=== PATIENT | female | born 2000 | race Caucasian/White ===

== ENCOUNTER 2018-09-27 16:56 | Inpatient (IN) | payer OTHER, SELFPAY ==
[~2018-09-27] VITALS: Ht 165.1 cm; Wt 70.4 kg
[2018-09-27] MEDS ORDERED: PRENTAB9 PO (17:21)
[2018-09-27 17:25] VITALS: BP 117/67
[2018-09-27] MEDS ORDERED: LR 1,000 ML IV ONE (17:30)
[2018-09-27] MEDS ORDERED: LACTATED RINGER'S 1000 ML IV STA (18:33)
[2018-09-27] MEDS ORDERED: LR 1,000 ML IV SCH ×2 (18:33→21:30)
[2018-09-27] MEDS ORDERED: ACETAMINOPHEN 500 MG TAB PO PRN (18:45)
[2018-09-27] MEDS ORDERED: BICITRA 30ML SOLN UDC PO ONE (18:45)
[2018-09-27] MEDS ORDERED: AZITHROMYCIN INJ 500 MG, VIAL MATE ADAPTER 1 EACH in D5W 250 ML IV ONE (18:45)
[2018-09-27 18:58] LABS: HEMATOCRIT 32.7 % (36.0-47.0); MEAN CORPUSCULAR HEMOGLOBIN 29.4 pg (27.0-33.0); MEAN CORPUSCULAR HGB CONC 33.6 g/dl (32.0-36.5); MEAN CORPUSCULAR VOLUME 87.4 fl (80.0-96.0); PLATELET COUNT, AUTOMATED 179 10^3/uL (150-450); RED BLOOD COUNT 3.74 10^6/uL (4.00-5.40); WHITE BLOOD COUNT 17.5 10^3/uL (4.0-10.0)
[2018-09-27] MEDS: AMPICILLIN SOD/SULBACTAM SOD 3 GM in D5W MINI-BAG PLUS 100 ML IV SCH ×2 (19:03→23:57)
[2018-09-27 19:14] VITALS: BP 133/72
[2018-09-27] MEDS ORDERED: OXYTOCIN INJ 10 UNITS/ML VIAL (J2590) As Ordered ONE (19:19)
[2018-09-27] MEDS ORDERED: dexameTHASONE 4 MG/ML 1ML VIAL (J1100) As Ordered ONE (19:22)
[2018-09-27] MEDS ORDERED: ONDANSETRON 4MG/2ML VIAL (J2405) As Ordered ONE (19:22)
[2018-09-27 19:24] LABS: BASO % 0.2 % (0.0-1.0); EOS % 0.1 % (0.0-3.0); LYMPH # 0.6 10^3/uL (1.5-6.5); LYMPH % 3.7 % (24.0-44.0); MONO # 1.2 10^3/uL (0.0-0.8); NEUTROPHILS # 15.3 10^3/uL (1.8-7.7); NEUTROPHILS % 88.1 % (36.0-66.0)
[2018-09-27] MEDS ORDERED: BUPIVACAINE/DEXTROSE 0.75% 2 ML AMP As Ordered ONE (19:24)
[2018-09-27] MEDS ORDERED: MORPHINE PRES-FREE INJ 10 MG/10 ML VIAL (J2274) As Ordered ONE (19:25)
[2018-09-27 19:35] LABS: PLATELET ESTIMATE NORMAL (NORMAL)
[2018-09-27] MEDS ORDERED: diphenhydrAMINE INJ 50MG/ML VIAL (J1200) IV PRN (19:55)
[2018-09-27] MEDS ORDERED: NALOXONE INJ 0.4 MG/1 ML VIAL (J2310) IV PRN ×2 (19:55)
[2018-09-27] MEDS ORDERED: METOCLOPRAMIDE INJ 10MG/2ML VIAL (J2765) IV PRN (19:55)
[2018-09-27] MEDS ORDERED: NALBUPHINE HCL 10 MG/ML AMP (J2300) IV PRN ×2 (19:55→21:30)
[2018-09-27] MEDS ORDERED: ONDANSETRON 4MG/2ML VIAL (J2405) IV PRN ×3 (19:55→21:45)
[2018-09-27] MEDS ORDERED: miSOPROStol 200 MCG TAB (S0191) As Ordered ONE (20:22)
[2018-09-27 20:32] LABS: CORD GAS HCO3 V 22.3 MEQ/L; CORD GAS O2 SAT V 58.3 %; CORD GAS PCO2 V 41.2 mmHg; CORD GAS PH V 7.352 UNITS; CORD GAS PO2 V 23.1 mmHg; CORD GAS SBC V 21.1 MEQ/L; CORD GAS TCO2 V 23.6 MEQ/L
[2018-09-27 20:33] LABS: CORD GAS PH A 7.283 UNITS
[2018-09-27] MEDS ORDERED: fentaNYL 100 MCG/2 ML INJECTION (J3010) As Ordered ONE (20:33)
[2018-09-27 20:34] LABS: CORD GAS HCO3 A 26.3 MEQ/L; CORD GAS PCO2 A 56.9 mmHg; CORD GAS PO2 A 11.5 mmHg; CORD GAS TCO2 A 28.1 MEQ/L
[2018-09-27] MEDS ORDERED: OXYTOCIN 30 UNITS IN 0.9% NaCl 500ML IV BAG (J2590) As Ordered ONE (20:34)
[2018-09-27 20:35] LABS: CORD GAS ABE A -1.4; CORD GAS O2 SAT A 20.1 %; CORD GAS SBC A 21.6 MEQ/L
[2018-09-27] MEDS ORDERED: ACYCLOVIR 350 MG in D5W 100 ML IV SCH (21:00)
[2018-09-27] MEDS ORDERED: MORPHINE 10 MG/ML 1ML VIAL (J2270) IV PRN (21:30)
[2018-09-27] MEDS ORDERED: fentaNYL 100 MCG/2 ML INJECTION (J3010) IV PRN (21:30)
[2018-09-27] MEDS: LR 1,000 ML IV SCH (21:45)
[2018-09-27] MEDS ORDERED: RHOGAM 300 MCG (1500 IU) INJ (J2790) IM SCH (21:45)
[2018-09-27] MEDS ORDERED: MEASLES,MUMPS,RUBELLA VACCINE INJ (MMR-II) (90707) SC SCH (21:45)
[2018-09-27] MEDS ORDERED: miSOPROStol 200 MCG TAB (S0191) PR ONE (21:45)
[2018-09-27] MEDS ORDERED: KETOROLAC 30 MG/ML VIAL (J1885) As Ordered ONE (21:53)
[2018-09-27] MEDS ORDERED: PERCOCET 5MG/325MG TAB As Ordered ONE (22:13)
[2018-09-27] MEDS: PERCOCET 5MG/325MG TAB PO PRN (22:21)
[2018-09-27] MEDS: KETOROLAC 30 MG/ML VIAL (J1885) IV SCH (22:22)
--- NOTE | 2018-09-27 22:59 | HPEPDOC ---
Obstetrical History & Physical General Date of Admission Sep 27, 2018 at 18:25 History of Present Illness Ora is a 18yo with SIUP at 35w6d by LMP c/w 17wk u/s who presents tonight with a few complaints. She recently arrived a few days ago as a transfer-in to this area, recently stationed at [place] and in-p rocessing begins tomorrow. They are staying at a hotel. She notes that about 3 days ago she started having fevers/chills. She then went on to develop abdominal pain. This morning she noticed gush of fluid from her vagina and she feels she has still been leaking though did not wear a pad here. Has felt movement. She has had some nausea but no vomiting/diarrhea. She also notes that she has had an active HSV lesion on her genitalia. She took 2 doses of valtrex, but stopped when she felt nauseous because she thought maybe the medication was causing it. She is somewhat of a poor historian, because she is obviously distressed from her abdominal pain and contractions- so she is not exactly sure of the chronology of things. 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 Late to care at 15wk. Transfer in from [place], has not yet been seen in our office but records in hand. Height (inches): 65 Pre- weight (lbs.): 123 Admission Weight (lbs.): 156 Change in Weight (lbs.): 33 Past Medical History Past Obstetrical History : Past Obstetrical History: [employer] History: History of STD (chlamydia) Past Medical History Medical History Hx of genital HSV Surgical History: Tonsilectomy Family History Significant Family History: No pertinent family hx Social History Marital Status: Family situation: Spouse/partner home Psychosocial History: No pertinent psych hx * Smoker: non-smoker Alcohol: Denies Drugs: denies Imunizations Tdap status: declined Influenza Status: declined Allergies Coded Allergies: Shellfish Allergy (Verified Allergy, Intermediate, STATES BROKE OUT IN HIVES, 09/27/18) Medications Scheduled Multivitamins/ ( 27-0.8 mg) 1 Tab Tab, 1 TAB PO DAILY Physical Examination Physical Examination GENERAL: Alert and oriented times three. She is warm to the touch. She is distressed. ABDOMEN: Gravid with generalized fundal tenderness, no rebound/guarding FETUS: Is vertex (VTX) by sterile vaginal examination (SVE) EXTREMITIES: No edema. Glistening of the perineum, nitrazine touched to it and immediately turned blue. Grossly ruptured on exam, clear fluid. Vital Signs/I&O Vital Signs Date Time Temp Pulse Resp B/P (MAP) Pulse Ox O2 Delivery O2 Flow Rate FiO2 09/27/18 17:25 101.7 113 22 117/67 (84) Laboratory Data 24H LABS Laboratory Tests 2 09/27/18 18:48: Nucleated Red Blood Cells % (auto) 0.0 CBC/BMP Laboratory Tests 09/27/18 18:48 Red Blood Count 3.74 L, Mean Corpuscular Volume 87.4, Mean Corpuscular Hemoglobin 29.4, Mean Corpuscular Hemoglobin Concent 33.6, Red Cell Distribution Width 13.0 Pertinent Laboratoy Data Blood Type: O+ RBC Antibody Screen: Negative HIV: Negative Hepatitis B: Negative Hepatitis C: Unknown Rapid Plasma Reagin: Nonreactive Rubella: Immune Varicella: Immune Chlamydia/Gonorrhea: Negative Group B Streptococcus: Unknown Quad Screen Test: Negative Cystic Fibrosis: Negative Glucose Tolerance Test: 82 Anatomy Ultrasound Ultrasound Date: Jun 08, 2018 Placenta Location: Posterior Normal Anatomy: Yes Placenta Previa: No Steroid Therapy Steroid Therapy: No Vaginal Examination Dilation: 3 cm Effacement: 90% Station: -2 Cervical Consistency: Soft Assessment Heart Rate (FHR): 170 Variability: Moderate Accelerations: Positive Decelerations: None Tocometer Contractions: Yes Frequency: regular, every 2-5 min. Duration: greater than 60 seconds Strength: palpated as strong Assessment/Plan Assessment Ora is a 18yo with SIUP at 35w6d by LMP c/w 17wk u/s with suspected chorioamnionitis based on fever of 101.7F, maternal tachycardia pulse 113, tachycardia 170's, fundal tenderness, & ctx all in the setting of gross rupture of membranes. Uncertain time of PPROM, possibly this morning, though patient endorses febrile x3 days. Also concerning, patient endorses recent HSV genital lesion she treated with 2 doses of valtrex but then discontinued secondary to nausea. Cat II FHRT due to tachy, but mod hira/no decels. SCE /-2. Patient is in distress, very uncomfortable. GBS unknown. Cephalic by SCE. Patient and just arrived in the area and staying in a hotel. Hx significant for: genital HSV, not on prophylaxis. Late to care at 15wk. Transfer in from [place], has not yet been seen in our office but records in hand. Plan Admit to L&D Nursing team, anesthesia, NICU physician alerted to need for urgent section Counseled and consented for PLTCS and blood transfusion, discussed r/b/a, tamika t and I signed consent forms NPO Bicitra per protocol Unasyn 3g q6hr, 1st dose immediately Acyclovir 350mg IV now Anceph 2g IV x1 pre-op Azithromycin 500mg IV x1 pre-op tylenol 1000mg PO x1 now considered betamethasone for premature , but given the minimal time it will be given before delivery and the fact that patient has infection and will need good wound healing, will not be giving steroids at this time Labs and intravenous (IV) per unit protocol. Lactated Ringers (LR): Bolus 1000 mL, then at 125 mL/hr. Will proceed to OR when team is ready MD Betty Lemus Katrina D MD Sep 27, 2018 19:58
[2018-09-27 23:15] VITALS: BP 132/74
[2018-09-27 23:50] VITALS: BP 127/72
[2018-09-28] VITALS (7 sets, daily range): BP systolic 100–122; BP diastolic 54–76
[2018-09-28] MEDS: AMPICILLIN SOD/SULBACTAM SOD 3 GM in D5W MINI-BAG PLUS 100 ML IV SCH ×4 (02:11→20:23)
[2018-09-28] MEDS: PERCOCET 5MG/325MG TAB PO PRN ×3 (02:11→18:51)
[2018-09-28] MEDS: KETOROLAC 30 MG/ML VIAL (J1885) IV SCH ×3 (04:00→15:52)
[2018-09-28] MEDS: LR 1,000 ML IV SCH (05:45)
[2018-09-28] MEDS ORDERED: METHYLERGONOVINE MALEATE 0.2 MG/ML VIAL (J2210) IM ONE (06:30)
--- NOTE | 2018-09-28 06:53 | IPNPDOC ---
Progress Note Date of Service: Sep 28, 2018 Day#: 1 Progress Note PPD/POD 1 SUBJECT: Ora is a 18yo [id number] s/p uncomplicated PLTCS on 09/27/18 indicated for active HSV lesion in the setting of PPROM/active labor and chorioamnionitis diagnosed at time of presentation. She presented with fever of 101F, and maternal tachycardia, fundal tenderness, gross ROM with uncertain timing and ctx. itself was uncomplicated. She received a Unasyn, Azithromycin and Azithromycin pre-op as well as a dose of IV acyclovir. is in the NICU for 5 days for IV abx/antivirals. occurred late in the evening yesterday. Since then, patient has been afebrile and feels p henomenally better. She is receiving Unasyn post-operatively and PO valtrex. She reports her pain is well controlled. She has not yet ambulated, has partida catheter in place draining copious yellow clear urine. She is tolerating regular diet. She hopes to breastfeed. Reports lochia is like a normal period. SCDs in place. No f/c/n/v/CP/SOB. OBJECTIVE: VITAL SIGNS: Within normal limits, afebrile. Alert and oriented times three. Abdomen: Fundus firm at U-2. Soft, appropriately tender to palpation with no rebound/guarding. Bandage over pfannensteil is dry and intact. Extremities: no pain with palpation of calves, SCDs on Labs: pre-op H/H: 11/32.7, WBC 17.5 ASSESSMENT: Ora is a 18yo [id number] s/p uncomplicated PLTCS on 09/27/18 indicated for active HSV lesion in the setting of PPROM/active labor and chorioamnionitis diagnosed at time of presentation. Vitals within normal limits, afebrile, benign exam, hemodynamically stable with no evidence of worsening infection. Good urine output. in NICU. PLAN: 1. Routine post-op/ care 2. Toradol and percocet then motrin and percocet for pain 3. Encourage breast feeding and ambulation to NICU. SCDs until fully ambulatory 4. Regular diet, encourage PO hydration 5. Partida catheter to be removed 24hr after surgery 6. Continue Unasyn 3g q6hr for 24hr post-op 7. Continue valtrex 500mg PO BID 8. Ok to shower and remove outer bandage tomorrow morning, 09/29 9. CBC tomorrow am, 09/29 Dr. Nandini Hernández MD VS, I&O, 24H, Fishbone Vital Signs/I&O Vital Signs Date Time Temp Pulse Resp B/P (MAP) Pulse Ox O2 Delivery O2 Flow Rate FiO2 09/28/18 05:50 97.1 67 20 119/62 (81) 98 09/28/18 02:00 Room Air I&O- Last 24 Hours up to 6 AM 09/28/18 06:00 Output Total 600 ml Balance -600 ml Laboratory Data 24H LABS Laboratory Tests 2 09/27/18 18:48: Immature Granulocyte % (Auto) 0.9, Neutrophils (%) (Auto) 88.1H, Lymphocytes (%) (Auto) 3.7L, Monocytes (%) (Auto) 7.0H, Eosinophils (%) (Auto) 0.1, Basophils (%) (Auto) 0.2, Immature Granulocyte # (Auto) 0.2H, Neutrophils # (Auto) 15.3H, Lymphocytes # (Auto) 0.6L, Monocytes # (Auto) 1.2H, Eosinophils # (Auto) 0.0, Basophils # (Auto) 0.0, Nucleated Red Blood Cells % (auto) 0.0, Platelet Estimate NORMAL 09/27/18 19:25: Serology Scanned Report Hepatitis B Testing 09/27/18 20:21: Cord Venous Blood pH 7.352, Cord Venous Blood PCO2 41.2, Cord Venous Blood PO2 23.1, Cord Venous Blood HCO3 22.3, Cord Venous Blood Total CO2 23.6, Cord Venous Base Excess (Actual) -3.0, Cord Venous Base Excess (Standard) 21.1, Cord Venous Blood Oxygen Saturation 58.3 CBC/BMP Laboratory Tests 09/27/18 18:48 Red Blood Count 3.74 L, Mean Corpuscular Volume 87.4, Mean Corpuscular Hemoglobin 29.4, Mean Corpuscular Hemoglobin Concent 33.6, Red Cell Distribution Width 13.0 Nandini Hernández MD Sep 28, 2018 06:53
[2018-09-28 07:06] LABS: HEMATOCRIT 32.5 % (36.0-47.0); HEMOGLOBIN 10.9 g/dl (12.0-15.5); MEAN CORPUSCULAR HEMOGLOBIN 29.5 pg (27.0-33.0); MEAN CORPUSCULAR HGB CONC 33.5 g/dl (32.0-36.5); MEAN CORPUSCULAR VOLUME 88.1 fl (80.0-96.0); PLATELET COUNT, AUTOMATED 176 10^3/uL (150-450); RED BLOOD COUNT 3.69 10^6/uL (4.00-5.40); WHITE BLOOD COUNT 18.5 10^3/uL (4.0-10.0)
[2018-09-28] MEDS: valACYclovir HCL 500 MG TAB PO SCH ×2 (08:39→21:11)
[2018-09-28] MEDS: PRENATAL VITAMINS CHEWABLE TABLET PO SCH (08:39)
[2018-09-28] MEDS: DOCUSATE SODIUM 100 MG CAP PO SCH ×2 (08:39→21:11)
--- NOTE | 2018-09-28 13:38 | RO ---
DATE OF PROCEDURE: 09/27/2018 CLINICAL SERVICE: Obstetrics. PREOPERATIVE DIAGNOSES: Premature rupture of membranes in the setting of chorioamnionitis, active vaginal herpes lesion. POSTOPERATIVE DIAGNOSES: Premature rupture of membranes in the setting of chorioamnionitis, active vaginal herpes lesion. OPERATION PERFORMED: Primary low transverse section. SURGEON: Nandini Hernández MD PRESIDENT PRACTICING UROLOGIST: Marisol Govea CNM who was necessary for urgent assistance involving exposure/retraction, assisted with delivery of the baby and subsequent closure of tissue layers. ANESTHESIA: INDICATIONS FOR OPERATION: Ora is a 18-year-old 1 now P 0-1-0-1 who arrived in labor and delivery, 35 weeks 6 days, reporting 3 days worth of fevers and an having significant abdominal pain as well as contractions. She is new to the area having recently moved here with her and currently staying at a hotel before they receive housing. She was a difficult historian because of her pain, but essentially there were three days of fevers. On explicit questioning regarding loss of fluid she stated yes she believes she had loss of fluid in the morning, but did not have continued leaking and she also endorsed having an active herpes lesion she had taken two doses of Valtrex for in the previous days, but stopped taking it due to nausea, however, her symptoms of nausea, abdominal pain, fevers contractions all became worse and culminated in her coming to labor and delivery. She is also having some vaginal bleeding. She was noted to be febrile to 101 degrees Fahrenheit. There was tachycardia as well as significant maternal tachycardia, abdominal pain and contractions noted. All of this, as well as having gross rupture of membranes with glistening of the perineum, Nitrazine which was touched to it and immediately turned blue, and on cervical exam she was 3 cm, 90% effaced and there was also gross leaking of fluid that was clear at that point, so a diagnosis of chorioamnionitis was made in the setting of premature rupture of membranes and labor and an unknown time line for an active herpes lesion. Because of the active herpes lesion, she was immediately counseled for primary low transverse section. The intensive-care unit (NICU) physician was alerted to the situation as well as the nursing team and anesthesia. She received a dose of 3 grams Unasyn IV immediately and was also then ordered for Ancef and azithromycin prophylactically for the surgery as well as a dose of acyclovir given her history of herpes. MATERIALS FORWARDED TO THE LAB FOR EXAMINATION: Placenta and cord gases. At the time of this dictation pH venous has resulted 7.352 and base excess -3. DESCRIPTION OF FINDINGS: Female infant in cephalic presentation. scores were 9 and 9, weight 3150 grams or 6 pounds 15 ounces, normal appearing uterus, fallopian tubes and ovaries. INFECTION CLASSIFICATION: II. ESTIMATED BLOOD LOSS: 600 mL. IV FLUIDS: 1200 mL of Lactated Ringer's. URINE OUTPUT: 100 mL of clear yellow urine. DESCRIPTION OF OPERATION: After obtaining informed consent, the patient was taken to the operating room. She had spinal anesthesia placed and Guillory catheter, bilateral sequential compression devices were placed. She was prepped and draped in normal sterile fashion in the dorsal supine position with a left lateral tilt. Time out was performed to confirm patient name, date of , procedure and indication. The team was in agreement. Dr. Reid, the NICU physician, was present. Spinal anesthesia was found to be adequate using an Allis clamp. She received Unasyn for the chorioamnionitis prior to surgery and then she also received Ancef and a dose of azithromycin for prophylaxis. A Pfannenstiel skin incision was made with a scalpel, carried through to the underlying layer of fascia. The fascia was incised in the midline and the incision was extended laterally with Pino scissors. Superior and inferior aspects of the fascial incision were grasped with Farhan clamps, elevated and the underlying rectus muscles were dissected off bluntly and sharply. Peritoneum was entered digitally and the rectus muscles were in the midline. Peritoneal incision was extended superiorly and inferiorly with good visualization of the bladder. Bladder blade was inserted and the vesicouterine peritoneum was identified, grasped with pickups and entered sharply with Metzenbaum scissors. The incision was extended laterally and a bladder flap was created digitally. Bladder blade was reinserted, and the lower uterine segment was scored in a transverse fashion with the scalpel. The uterus was entered bluntly and the incision was extended with traction. Bladder blade was removed and the infant's head was easily elevated to the level of the incision. Fundal pressure was applied and the head was delivered atraumatically in the OA position. Anterior shoulder, posterior shoulder and corpus were delivered without difficulty. Nose and mouth were suctioned with bulb suction and the cord was clamped times two and cut. The infant was immediately handed off to the awaiting team. Cord gases were obtained as well as cord blood for maternal blood type O+. Placenta was then removed with traction on the cord and uterine massage and it was sent to pathology. The uterus was exteriorized and cleared of all clot and debris. Uterine incision was repaired with #0 Vicryl suture in a running locking fashion. A second layer of #0 Monocryl was used to close the hysterotomy incision in an imbricating fashion. Uterine incision was inspected. Hemostasis was noted. The posterior cul-de-sac was irrigated and the uterus was returned to the abdomen. The gutters were cleared of all clots and gently irrigated. Hemostasis was noted. Peritoneum was closed using #3-0 Vicryl suture in a running fashion. The fascia was reapproximated with #0 Vicryl suture in a running fashion. Subcutaneous tissue was copiously irrigated. Johanna's fascia was reapproximated using #3-0 Vicryl suture in a running fashion. Skin edges were reapproximated using three inverted interrupted stitches using #3-0 Vicryl suture followed by a running subcuticular stitch using #4-0 Monocryl suture. Incision was cleaned using a wet lap dried with a dry lap. Steri-Strips were applied in the usual fashion perpendicular to the Pfannenstiel incision. Two strips of Telfa were layered on top of the Steri-Strips followed by a dry sterile towel. Surgical drapes were removed. Sterile towel was removed and pressure dressing was applied over the entire surgical incision. Vagina was cleared of all blood clot without active bleeding noted. Fundus was firm at U -3 cm after notably receiving one dose of 0.2 mg IM Methergine previously just after the hysterotomy was begun to be repaired and all counts were correct times two. She had also received IV Pitocin per protocol 30 units. I placed 800 mcg of Cytotec prophylactically in the rectum to prevent any future bleeding given her risk factor being chorioamnionitis and unknown timeline for how long she had the infection present. She will also be continued on Unasyn for 24 hours given known timeline. The procedure was without complications. The patient tolerated the procedure well. She was taken to recovery room on labor and delivery in stable condition. The will be kept for 5 days in the NICU to receive IV antivirals as well as treatment for the chorioamnionitis.
[2018-09-28] MEDS: IBUPROFEN 800 MG TAB PO SCH (23:55)
[2018-09-29] MEDS ORDERED: LR 500 ML IV ONE (00:45)
[2018-09-29] MEDS: PERCOCET 5MG/325MG TAB PO PRN ×4 (01:04→13:50)
[2018-09-29] MEDS: AMPICILLIN SOD/SULBACTAM SOD 3 GM in D5W MINI-BAG PLUS 100 ML IV SCH (02:10)
[2018-09-29 02:16] VITALS: BP 111/55
[2018-09-29 05:39] VITALS: BP 117/60
[2018-09-29] MEDS: IBUPROFEN 800 MG TAB PO SCH ×2 (07:57→16:01)
[2018-09-29] MEDS: DOCUSATE SODIUM 100 MG CAP PO SCH ×2 (08:00→22:36)
[2018-09-29] MEDS: PRENATAL VITAMINS CHEWABLE TABLET PO SCH (08:00)
--- NOTE | 2018-09-29 08:06 | IPNPDOC ---
Progress Note Date of Service: Sep 29, 2018 Day#: 2 Progress Note PPD/POD 2 SUBJECT: Ora is a 18yo [id number] s/p uncomplicated PLTCS on the evening of 09/27/18 indicated for active HSV lesion in the setting of PPROM/active labor and chorioamnionitis diagnosed at time of presentation. She presented with fever of 101F, and maternal tachycardia, fundal tenderness, gross ROM with uncertain timing and ctx. itself was uncomplicated. She received Unasyn, Azithromycin and Azithromycin pre-op as well as a dose of IV acyclovir. Infant is in the NICU for 5 days for IV abx/antivirals. She reports her pain is overall controlled, hasn't had any pain meds since last night and is starting to have abdominal pain. Ambulating well, spontaneously voiding without issue since partida removed last night. She is tolerating regular diet. She is /pumping. Reports lochia is like a normal period. No f/c/n/v/CP/SOB. OBJECTIVE: VITAL SIGNS: Within normal limits, afebrile. Alert and oriented times three. Abdomen: Fundus firm at U-2. Soft, appropriately tender to palpation with no rebound/guarding. Bandage removed. Pfannensteil incision is intact with steri strips overlying, no erythema/induration/drainage Extremities: no pain with palpation of calves Labs: pre-op H/H: 11/32.7, WBC 17.5 post-op H/H: 10.9/32.5, WBC 18.5 ASSESSMENT: Ora is a 18yo [id number] s/p uncomplicated PLTCS on 09/27/18 indicated for active HSV lesion in the setting of PPROM/active labor and chorioamnionitis diagnosed at time of presentation. Vitals within normal limits, afebrile, benign exam, hemodynamically stable with no evidence of worsening infection. Good urine output. in NICU. PLAN: 1. Routine post-op/ care 2. Motrin and percocet for pain 3. Encourage breast feeding and ambulation to NICU. 4. Regular diet, encourage PO hydration 5. Continue valtrex 500mg PO BID 6. Ok to shower Dr. Nandini Hernández MD VS, I&O, 24H, Fishbone Vital Signs/I&O Vital Signs Date Time Temp Pulse Resp B/P (MAP) Pulse Ox O2 Delivery O2 Flow Rate FiO2 09/29/18 05:40 16 Room Air 09/29/18 05:39 97.4 68 117/60 (45) 99 I&O- Last 24 Hours up to 6 AM 09/29/18 06:00 Output Total 2450 ml Balance -2450 ml Nandini Hernández MD Sep 29, 2018 08:05
[2018-09-29] MEDS: valACYclovir HCL 500 MG TAB PO SCH ×2 (09:54→22:37)
[2018-09-29 10:00] VITALS: BP 108/57
[2018-09-29 18:00] VITALS: BP 108/61
[2018-09-29 22:00] VITALS: BP 119/65
[2018-09-29] MEDS ORDERED: ACETAMINOPH W/CODEINE #3 TAB UD PO PRN ×2 (22:15)
[2018-09-30] MEDS: IBUPROFEN 800 MG TAB PO SCH ×2 (00:09→08:17)
[2018-09-30 06:39] VITALS: BP 111/65
[2018-09-30] MEDS: PRENATAL VITAMINS CHEWABLE TABLET PO SCH (08:16)
[2018-09-30] MEDS: DOCUSATE SODIUM 100 MG CAP PO SCH (08:16)
[2018-09-30] MEDS: valACYclovir HCL 500 MG TAB PO SCH (08:16)
[2018-09-30] MEDS ORDERED: IBUP-1114 PO (09:50)
[2018-09-30] MEDS ORDERED: VALT500T PO (09:50)
[2018-09-30] MEDS ORDERED: OXYC1TAB23 PO ×2 (09:51→09:52)
--- NOTE | 2018-09-30 14:32 | IPNPDOC ---
Progress Note Date of Service: Sep 30, 2018 Day#: 3 Progress Note PPD/POD 3 SUBJECT: Ora is a 18yo [id number] s/p uncomplicated PLTCS on the evening of 09/27/18 indicated for active HSV lesion in the setting of PPROM/active labor and chorioamnionitis diagnosed at time of presentation. She presented with fever of 101F, and maternal tachycardia, fundal tenderness, gross ROM with uncertain timing and ctx. itself was uncomplicated. She received Unasyn, Azithromycin and Azithromycin pre-op as well as a dose of IV acyclovir. Infant is in the NICU for 5 days for IV abx/antivirals. She reports her pain is overall controlled, she didn't want the percocet at first, but was given tylenol/codeine and that was not effective enough for the pain. Ambulating well, spontaneously voiding without issue. She is tolerating regular diet. She is /pumping. Reports lochia is like a normal period. No f/c/n/v/CP/SOB. OBJECTIVE: VITAL SIGNS: Within normal limits, afebrile. Alert and oriented times three. Abdomen: Fundus firm at U-2. Soft, appropriately tender to palpation with no rebound/guarding. Pfannensteil incision is intact with steri strips overlying, no erythema/induration/drainage Extremities: no pain with palpation of calves Labs: pre-op H/H: 11/32.7, WBC 17.5 post-op H/H: 10.9/32.5, WBC 18.5 ASSESSMENT: Ora is a 18yo [id number] s/p uncomplicated PLTCS on 09/27/18 indicated for active HSV lesion in the setting of PPROM/active labor and chorioamnionitis diagnosed at time of presentation. Vitals within normal limits, afebrile, benign exam, hemodynamically stable with no evidence of worsening infection. in NICU. PLAN: 1. Discharge to board in the NICU until ready for discharge 2. Given home meds: Motrin and percocet for pain, miralax 3. Encouraged breast feeding 4. Regular diet, encouraged PO hydration 5. Continue valtrex 500mg PO BID 6. Discussed return precautions: incision redness/increasing pain/separation/drainage, fevers/chills, increasing pain over uterus, breast redness/pain, foul smelling discharge or anything else concerning 7. Vaginal rest for 6 weeks discussed, no heavy lifting greater than weight of baby 8. Keep incision clean and dry 9. 2 week visit for incision check Dr. Nandini Hernández MD VS, I&O, 24H, Fishbone Vital Signs/I&O Vital Signs Date Time Temp Pulse Resp B/P (MAP) Pulse Ox O2 Delivery O2 Flow Rate FiO2 09/30/18 06:39 97.7 77 18 111/65 (80) 97 Room Air Nandini Hernández MD Sep 30, 2018 14:32
--- NOTE | 2018-09-30 14:36 | DS.PDOC ---
Discharge Summary General Date of Admission Sep 27, 2018 at 18:25 Date of Discharge Sep 30, 2018 Attending Physician: Nandini Hernández MD Discharge Summary PROCEDURES PERFORMED DURING STAY: Primary low transverse section ADMITTING DIAGNOSES: 1. 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 HISTORY OF PRESENT ILLNESS/HOSPITAL COURSE: Ora is a 18yo [id number] s/p uncomplicated PLTCS on the evening of 09/27/18 indicated for active HSV lesion in the setting of PPROM/active labor and chorioamnionitis diagnosed at time of presentation. She presented with fever of 101F, and maternal tachycardia, fundal tenderness, gross ROM with uncertain timing and ctx. itself was uncomplicated. She received Unasyn, Azithromycin and Azithromycin pre-op as well as a dose of IV acyclovir. Infant is in the NICU for 5 days for IV abx/antivirals. She had a benign post- operative course and at time of discharge, vitals are within normal limits, afebrile, benign exam, hemodynamically stable with no evidence of worsening infection. DISCHARGE MEDICATIONS: Please see below. ALLERGIES: Please see below. PHYSICAL EXAMINATION ON DISCHARGE: VITAL SIGNS: Within normal limits, afebrile. Alert and oriented times three. Abdomen: Fundus firm at U-2. Soft, appropriately tender to palpation with no rebound/guarding. Pfannensteil incision is intact with steri strips overlying, no erythema/induration/drainage Extremities: no pain with palpation of calves] LABORATORY DATA: pre-op H/H: 11/32.7, WBC 17.5 post-op H/H: 10.9/32.5, WBC 18.5 ACTIVITY: vaginal rest DIET: regular DISCHARGE PLAN/Instructions: 1. Discharge to board in the NICU until ready for discharge 2. Given home meds: Motrin and percocet for pain, miralax 3. Encouraged breast feeding 4. Regular diet, encouraged PO hydration 5. Continue valtrex 500mg PO BID 6. Discussed return precautions: incision redness/increasing pain/separation/drainage, fevers/chills, increasing pain over uterus, breast redness/pain, foul smelling discharge or anything else concerning 7. Vaginal rest for 6 weeks discussed, no heavy lifting greater than weight of baby 8. Keep incision clean and dry 9. 2 week visit for incision check DISPOSITION: 01 Home, Self-Care. DISCHARGE CONDITION: Stable TIME SPENT ON DISCHARGE: Greater than [address] Nandini Hernández MD Vital Signs/I&Os Vital Signs Date Time Temp Pulse Resp B/P (MAP) Pulse Ox O2 Delivery O2 Flow Rate FiO2 09/30/18 06:39 97.7 77 18 111/65 (80) 97 Room Air Discharge Medications Scheduled Multivitamins/ ( 27-0.8 mg) 1 Tab Tab, 1 TAB PO DAILY, (Reported) Valacyclovir Hydrochloride (Valtrex) 500 Mg Tab, 500 MG PO BID, (Reported) Scheduled PRN Ibuprofen (Ibuprofen) 400 Mg Tab, 800 MG PO Q8H PRN for PAIN, (Reported) Oxycodone/Acetaminophen (Oxycodone/Acetaminophen 5-325 mg) 1 Tab Tab, 1 TAB PO Q6HP PRN for PAIN SCALE 1-5, (Reported) Oxycodone/Acetaminophen (Oxycodone/Acetaminophen 5-325 mg) 1 Tab Tab, 2 TAB PO Q 6HP PRN for PAIN SCALE 6-10, (Reported) Allergies Coded Allergies: Shellfish Allergy (Verified Allergy, Intermediate, STATES BROKE OUT IN HIVES, 09/27/18) Nandini Hernández MD Sep 30, 2018 14:36
== END 2018-09-30 11:25 | disposition home or self-care (01) | DRG 772 ==
LOC: M LDO 16:56 → M LDI 18:25 → M OBS 23:22
PROVIDERS: ADMIT Obstetrics & Gynecology; ATTEND Obstetrics & Gynecology
PROC: 10D00Z1 Extraction of Products of Conception, Low, Open Approach (ICD-10-PCS; principal; 2018-09-27 19:47)
DX: O41.1230 Chorioamnionitis, third trimester, not applicable or unspecified (principal); O98.313 Other infections with a predominantly sexual mode of transmission complicating pregnancy, third trimester; O42.913 Preterm premature rupture of membranes, unspecified as to length of time between rupture and onset of labor, third trimester; A60.09 Herpesviral infection of other urogenital tract; Z3A.35 35 weeks gestation of pregnancy; Z37.0 Single live birth